=== PATIENT | female | born 1975 | race Caucasian/White ===

== ENCOUNTER 2023-05-25 08:56 | Emergency (ER) | payer OTHER, MEDICAID ==
[~2023-05-25] VITALS: Ht 172.7 cm; Wt 63.6 kg
[2023-05-25] MEDS ORDERED: dexamethasone sod phosphate 10mg/ml inj IM STA (09:08)
[2023-05-25] MEDS ORDERED: ondansetron 4mg rapidly disintigrating tab PO ONE (09:10)
[2023-05-25] MEDS ORDERED: cyclobenzaprine 10mg tablet PO ONE (09:10)
[2023-05-25] MEDS ORDERED: HYDROcodone/acetaminophen 5mg/325mg tablet PO ONE (09:10)
[2023-05-25] MEDS ORDERED: ketorolac trometh inj. 60 MG/2 ML VIAL IM ONE (09:10)
[2023-05-25] MEDS ORDERED: CYCL-1 PO (11:25)
[2023-05-25] MEDS ORDERED: LIDO700A32 TOP (11:25)
[2023-05-25 12:48] VITALS: BP 128/81; PULSE 97; RESP 18; TEMP 98.3; O2SAT 97
== END 2023-05-25 12:50 | disposition home or self-care (01) ==
LOC: ER 08:57
DX: S16.1XXA Strain of muscle, fascia and tendon at neck level, initial encounter (principal); V89.2XXA Person injured in unspecified motor-vehicle accident, traffic, initial encounter; Y93.89 Activity, other specified; Y92.89 Other specified places as the place of occurrence of the external cause; Y99.8 Other external cause status
CPT/HCPCS: 72050; 96372; 99284; J1100; J1885